=== PATIENT | male | born 2000 | race Caucasian/White ===

== ENCOUNTER 2020-07-04 10:06 | Emergency (ER) | payer BC, SELFPAY ==
--- NOTE | ~2020-07-04 | XR_ITS ---
EXAMINATION: XR chest 1V portable 07/04/2020 10:52 INDICATION: Left-sided chest pain and shortness of breath PROCEDURE: AP portable chest COMPARISON: No prior studies for comparison. FINDINGS: The lungs are clear. The cardiomediastinal silhouette is within normal limits. There are no pleural effusions. There is no pneumothorax suspected. IMPRESSION: 1: NO ACUTE CARDIOPULMONARY DISEASE. Reviewed, dictated and finalized at location B.
--- NOTE | 2020-07-04 10:21 | ECG_ITS ---
Measurements Intervals [place] Rate: 60 P: 67 MO: 140 QRS: 74 QRSD: 100 T: 47 QT: 393 QTc: 395 Interpretive Statements SINUS RHYTHM NORMAL ECG Electronically Signed On 07-04-2020 10:26:39 CDT by Dane Mcknight D.O.
[2020-07-04 10:23] VITALS: BP 137/78; PULSE 62; RESP 17; TEMP 36.8; O2SAT 100
[2020-07-04 10:39] LABS: Basophils Percent Auto 0.6 % (0.2-1.2); Eosinophils Percent Auto 0.6 % (0-4.4); Hematocrit 46.1 % (42.0-52.0); Hemoglobin 15.8 g/dL (14.0-18.0); Immature Granulocyte Absolute 0.01 K/mm3 (0.00-0.031); Immature Granulocyte Percent A 0.2 % (0-0.5); Lymphocytes Absolute Auto 1.78 K/mm3 (0.9-3.2); Lymphocytes Percent Auto 34.7 % (18.3-44.2); Mean Corpuscular HGB Conc 34.3 g/dl (32-36); Mean Corpuscular Hemoglobin 28.9 pg (26-34); Mean Corpuscular Volume 84.4 fl (80-100); Mean Platelet Volume 10.7 fl (7.4-10.4); Monocytes Absolute Auto 0.4 K/mm3 (0.1-0.6); Monocytes Percent Auto 8.4 % (2.6-8.5); Neutrophils Absolute Auto 2.9 K/mm3 (1.3-6.7); Neutrophils Percent Auto 55.5 % (45.5-73.1); Platelet Count Result 162 k/mm3 (150-375); Red Blood Count 5.46 M/mm3 (4.6-6.20); Red Cell Distribution Width 12.4 % (11.5-14.5); White Blood Count 5.1 K/mm3 (4.5-10.0)
[2020-07-04 10:54] LABS: Alanine Aminotransferase 15 U/L (4-50); Albumin Level 4.6 g/dL (3.5-5.1); Alkaline Phosphatase 51 U/L (38-126); Anion Gap 6 mmol/L (8-16); Aspartate Amino Transferase 27 U/L (17-59); Bilirubin,Total 1.4 mg/dL (0.2-1.3); Blood Urea Nitrogen 10 mg/dL (9-20); Calcium 9.3 mg/dL (8.4-10.2); Carbon Dioxide 30 mmol/L (22-30); Chloride 102 mmol/L (98-107); Estimated CRCL calculation 124 ml/min; Estimated Glomerular Filt Rate > 60; Glucose 92 mg/dL (75-110); Potassium 3.7 mmol/L (3.4-5.0); Sodium 138 mmol/L (137-145)
[2020-07-04] MEDS: ASPIRIN 81 MG CHEWABLE TABLET 324 MG PO (10:54)
[2020-07-04 11:05] LABS: Troponin I < 0.012 ng/mL (0.000-0.034)
[2020-07-04 11:06] LABS: Troponin I < 0.012 ng/mL (0.000-0.034)
[2020-07-04 11:18] LABS: D Dimer 0.27 ug/mL (<0.48)
--- NOTE | 2020-07-04 11:33 | ED.CHESTPAIN ---
HPI - Chest Pain General Chief Complaint: Chest Pain Stated Complaint: chest pain Time Seen by Provider: 07/04/20 10:22 Source: patient Mode of arrival: ambulatory Limitations: no limitations History of Present Illness HPI narrative: Patient presents with CC of intermittent left sided sharp chest pain that he has experienced intermittently for 1.5-2yrs off and on. He states that it occurs suddenly and normally self limits in approx 15 minutes. He reports it feels like a sharp cramp under his left pectoral but last night at approx 9pm he experienced the pain and a cramping shoot down to his left hand so he became concerned and decided he would go to the this morning but was directed to the ER. He reports the pain is usually started when he is resting and relaxing and he normally crunches forward for 15 minutes and it resolves, sometimes it resolves on its own even after a minute or two. He reports the pain worsens with movement but is not reproducible with palpation of his chest wall. He states that he occasionally drinks red bull and caffeinated soda. 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 Patient has not discussed these symptoms with his PCP. He states feeling a tingling to the left chest when he first came into the ER that quickly resolved. He denies immediate family history of heart attack at young age or any other health issues. He denies fever, chills, diaphoresis, SOB, nausea, vomiting, diarrhea, trauma to the area. Related Data Allergies Allergy/AdvReac Type Severity Reaction Status Date / Time No Known Allergies Allergy Verified 07/04/20 13:39 Review of Systems Review of Systems: Narrative: CONSTITUTIONAL: Denies fever, chills, or sweats. EYES: Denies visual changes, redness, or discharge. ENT: Denies rhinorrhea, congestion, sore throat, or otalgia. CARDIOVASCULAR: Denies chest pain, palpitations, or edema. RESPIRATORY: Reports now resolved intermittent left sided chest pain Denies cough or dyspnea. GASTROINTESTINAL: Denies abdominal pain, nausea, vomiting, or diarrhea. GENITOURINARY: Denies dysuria or hematuria. SKIN: Denies rash or itching. MUSCULOSKELETAL: Denies back pain, myalgia, or joint pain NEUROLOGIC: Denies headache, numbness, dizziness, or weakness. PSYCHIATRIC: Denies anxiety or depression. [facility] Social History Social History Gender identity (if verbalized by the patient): Male Exam Narrative: Exam Narrative: GENERAL: Well-appearing, well-nourished. Patient is not in any discomfort or distress HEAD: Normocephalic, atraumatic. EYES: PERRLA and EOMI. ENT: Nares clear, no rhinorrhea or epistaxis. Mucous membranes moist. Oropharynx without tonsillar hypertrophy exudate or other lesions. Bilateral TMs pearly johnson nonbulging NECK: Supple. No adenopathy or masses. No vertebral tenderness or loss of ROM. CHEST: Chest wall not tender to palpation. Pain not reproducible. Clear to auscultation. No respiratory distress. No wheezes rales or rhonchi HEART: Regular rate and rhythm. Normal peripheral pulses. EXTREMITIES: No acute changes in ROM. No edema. SKIN: Warm, dry, no rash. NEURO: No focal deficits. Alert and oriented x3. PSYCH: Normal mood and affect. Course Vital Signs Vital signs: Vital Signs Temperature 98.2 F 07/04/20 10:23 Pulse Rate 62 07/04/20 10:23 Respiratory Rate 17 07/04/20 10:23 Blood Pressure 137/78 07/04/20 10:23 Pulse Oximetry 100 07/04/20 10:23 Temperature 98.2 F 07/04/20 10:23 Pulse Rate 57 L 07/04/20 13:27 Respiratory Rate 18 07/04/20 13:27 Blood Pressure 137/65 07/04/20 13:27 Pulse Oximetry 100 07/04/20 13:27 MDM - Chest Pain MDM Narrative Medical decision making narrative: Patient's vitals has been stable throughout his ER visit. He is lab work, EKG, troponin III hour troponin have all been negative for acute findings. Patient has been instructed to follow-up with his primary care for additional investi
--- NOTE | 2020-07-04 12:00 | PC.NURSE ---
Asked patient for urine sample. Patient stated he is unable to give sample at this time. Will attempt at a later time. Patient denied straight catheter.
[2020-07-04] MEDS: KETOROLAC 15 MG/ML VIAL (*BKC) IV PUSH (13:06)
[2020-07-04 13:27] VITALS: BP 137/65; PULSE 57; RESP 18; O2SAT 100
[2020-07-04 13:30] LABS: Add Urine Microscopic? YES; Appearance Urine Clear (Clear); Bilirubin Urine Negative (Negative); Blood Urine Negative (Negative); Color Urine Yellow (Yellow); Glucose Urine UA Negative (Negative); Ketones Urine Negative (Negative); Leukocyte Esterase Ur Negative LEU/UL (Negative); Mucus Urine Few /lpf; Nitrate Urine Negative (Negative); Protein Urine Negative (Negative); Specific Grav Ur 1.018 (1.001-1.035); Urobilinogen Urine Negative mg/dL (<2.0); WBC Urine 0-3 /hpf
[2020-07-04 13:36] LABS: Amphetamine Screen Urine Negative (Negative); Barbiturate Screen Urine Negative (Negative); Benzodiazepines Screen Urine Negative (Negative); Cannabinoid Screen Urine Positive (Negative); Cocaine Screen Urine Negative (Negative); Methadone Screen Urine Negative (Negative); Opiate Screen Urine Negative (Negative); Phencyclidine Screen Urine Negative (Negative)
== END 2020-07-04 14:37 | disposition home or self-care (01) ==
PROVIDERS: Physician Assistant; Emergency Provider Emergency Medicine; PCP Internal Medicine
DX: R07.9 Chest pain, unspecified (principal); F17.200 Nicotine dependence, unspecified, uncomplicated
CPT/HCPCS: 36415; 71045; 80053; 80307; 81001; 84484; 85025; 85380; 93005; 96374; 99284; A9270; J1885